=== PATIENT | female | born 1950 | race Caucasian/White ===

== ENCOUNTER 2019-04-26 08:20 | Inpatient (IN) ==
--- NOTE | 2019-03-26 09:43 | PAT Medication Instructions ---
Medication Instructions Date of Service March 26, 2019 Home Medications albuterol sulfate 1 puff INHALATION Q6H NEEDED albuterol sulfate 2.5 mg INHALATION QID NEEDED atorvastatin 40 mg PO PM calcium carbonate [Tums Extra Strength Smoothies] 300 mg PO DAILY NEEDED echinacea 500 mg PO QAM hydroxyzine HCl 25 mg PO QID NEEDED naproxen sodium 220 mg PO BID NEEDED pantoprazole 20 mg PO QAM tramadol 50 mg PO Q6H NEEDED vit C,L-Tk-dspzx-lutein-zeaxan [PreserVision AREDS-2] 1 tab PO QAM zolpidem 5 mg PO HS NEEDED ASK your surgeon for instructions naproxen sodium 220 mg PO BID NEEDED STOP taking 2 weeks before surgery echinacea 500 mg PO QAM vit C,G-Af-gadtt-lutein-zeaxan [PreserVision AREDS-2] 1 tab PO QAM DO NOT take the morning of surgery calcium carbonate [Tums Extra Strength Smoothies] 300 mg PO DAILY NEEDED hydroxyzine HCl 25 mg PO QID NEEDED Take morning of surgery With a small sip of water, OTHERWISE NOTHING TO EAT OR DRINK AFTER MIDNIGHT: albuterol sulfate 1 puff INHALATION Q6H NEEDED (if needed; bring to hospital) albuterol sulfate 2.5 mg INHALATION QID NEEDED (if needed) tramadol 50 mg PO Q6H NEEDED (if needed; stop 4 hours before surgery) pantoprazole 20 mg PO QAM Take evening before surgery albuterol sulfate 1 puff INHALATION Q6H NEEDED (if needed) albuterol sulfate 2.5 mg INHALATION QID NEEDED (if needed) calcium carbonate [Tums Extra Strength Smoothies] 300 mg PO DAILY NEEDED (if needed) hydroxyzine HCl 25 mg PO QID NEEDED (if needed) tramadol 50 mg PO Q6H NEEDED (if needed) zolpidem 5 mg PO HS NEEDED (if needed) atorvastatin 40 mg PO PM Other Notes If you have any questions please call us at [phone] or [phone] or [phone] or [phone]
--- NOTE | 2019-03-26 11:10 | Anesthesiology Consultation ---
Date of Service March 26, 2019 Assessment & Plan (1) Encounter for pre-operative examination: - No previous anesthesia records available. Chart Review Chart Review: Acceptable Risk for Surgery and Patient seen in Pre Admission T esting Consults Requested none Teaching & Discussion Pre-Anesthesia Teaching/Discussion Notes: Instructed NPO after midnight before surgery, except medications with 15 cc of water. Medication instructions provided according to the PAT guidelines. History Surgery Operation Date: 04/26/19 07:00 Proposed Procedures p Right Reversed Total Shoulder Arthroplasty - Ray Leggett MD Height/Weight Height: 5 ft 2.5 in Weight: 89.5 kg Allergies Allergy/AdvReac Type Severity Reaction Status Date / Time codeine Allergy ITCHING Verified 03/19/19 11:20 AND NAUSEA Medications Home Medications Medication Instructions Recorded Confirmed Last Taken albuterol sulfate 1 puff INHALATION Q6H PRN 03/19/19 03/26/19 Unknown albuterol sulfate 2.5 mg INHALATION QID PRN 03/19/19 03/26/19 Unknown atorvastatin 40 mg PO PM 03/19/19 03/26/19 Unknown calcium carbonate [Tums Extra 300 mg PO DAILY PRN 03/19/19 03/26/19 Unknown Strength Smoothies] hydroxyzine HCl 25 mg PO QID PRN 03/19/19 03/26/19 Unknown naproxen sodium 220 mg PO BID PRN 03/19/19 03/26/19 Unknown pantoprazole 20 mg PO QAM 03/19/19 03/26/19 Unknown tramadol 50 mg PO Q6H PRN 03/19/19 03/26/19 Unknown zolpidem 5 mg PO HS PRN 03/19/19 03/26/19 Unknown mupirocin 2 % topical ointment 1 applic TOP TID #22 gm 03/26/19 03/26/19 Unknown sulfamethoxazole 800 1 tab PO BID 14 Days #28 tab 03/26/19 03/26/19 Unknown mg-trimethoprim 160 mg tablet Past Medical History Medical History Asthma Diabetes mellitus, type 2 GERD (gastroesophageal reflux disease) History of petechial rash Hx MRSA infection D/T BOILS IN PERINEUM - PER PT SHE DID PROTOCOL BY DR MARION Hx of bronchitis Hx of rotator cuff tear X3 Hyperlipidemia Macular degeneration of both eyes Exercise / Class Metabolic Activity II 4-5 Yardwork/Stairs/Walk up hill (Able to climb FOS. Denies CP or SOB. ) Past Family History Family History Daughter FHx: breast cancer Uncle Family history of diabetes mellitus Uncle Family history of diabetes mellitus Past Surgical History Surgical History History of open reduction and internal fixation (ORIF) procedure RIGHT WRIST History of prolapse of bladder REPAIR Hx of appendectomy Hx of bilateral breast reduction surgery Hx of bilateral cataract extraction Hx of repair of left rotator cuff X2 Hx of repair of right rotator cuff X1 Hx of tonsillectomy Hx of tubal ligation S/P COLLIN-BSO Past Anesthesia History No Hx of Anesthesia Complications and No Family Hx of Anesthesia Complications History of PONV No Hx of Motion Sickness and History of PONV Social History Smoking Status: Former smoker Smoking cigarettes per day: 1 pack per week x 3-4 years Do You Dip or Chew Tobacco: No Smoking End Date: 20 YR AGO Hx Alcohol Use: Yes Alcohol type: wine alcohol intake frequency: a few times a week Hx Substance Use: No Review of Systems Patient denies chest pain, shortness of breath, dyspnea on exertion, cough, wheezing, palpitations. + Joint Pain (Shoulder, right knee) +Acid Reflux (controlled with current medications and diet) Physical Exam Vital Signs BP: 126/73 P: 85 R: 16 T: 98.2 SPO2: 97% on RA Constitutional + obese ENMT Thyromental Distance: < 3.5 Finger Breadths (3) Mallampati Class: II Neck normal visual inspection; neck extension not limited Respiratory normal respiratory effort Auscultation: lungs clear to auscultation bilaterally Cardiovascular Rate/Rhythm: regular rate and regular rhythm Heart Sounds: no murmur Vessels: no carotid bruit Neurologic moves all extremities Psychiatric Orientation: alert and oriented x 3 Testing Laboratory Results 03/26/19 10:52 03/26/19 10:52 PT 10.0 Seconds (9.0-12.0) 03/26/19 10:52 INR 1.0 (0.9-1.1) 03/26/19 10:52 APTT 25.8 Seconds (21.0-31.0) 03/26/19 10:52 Hemoglobin A1c 8.2 % (4.5-5.6) H 03/26/19 10:52 Urine Color Yellow 03/26/19 Unknown Urine Appearance Clear (Clear) 03/26/19 Unknown Urine pH 5.0 (4.5-7.5) 03/26/19 Unknown Ur Specific Hatch 1.020 (1.000-1.030) 03/26/19 Unknown Urine Protein Negative (Negative) 03/26/19 Unknown Urine Glucose (UA) Trace (Negative) H 03/26/19 Unknown Urine Ketones Negative (Negative) 03/26/19 Unknown Urine Nitrite Negative (Negative) 03/26/19 Unknown Ur Leukocyte Esterase Negative (Negative) 03/26/19 Unknown Blood Type B Positive 03/26/19 10:52 Antibody Screen NEGATIVE 03/26/19 10:52 Surgeon's office notified of elevated HgbA1C. A1C was 6.8 as of 12/16/18. Electrocardiogram Date: 03/26/19 Findings: + NSR @ (75) Low voltage QRS Chest X-Ray Date: 03/26/19 Findings: + NAD
--- NOTE | 2019-03-26 11:55 | XRay Report ---
TWO VIEW CHEST CLINICAL HISTORY: Preoperative examination. FINDINGS: PA and lateral chest radiographs are obtained. No prior studies are available for compariso n at the time of dictation. The cardiomediastinal silhouette is unremarkable. The lungs and pleura l spaces are clear. There is no pneumothorax. The bony thorax appears intact. IMPRESSION: No active disease in the chest. Electronically signed by: Cody Olguin M.D. 03/26/2019 11:53 AM
[2019-03-26 12:05] LABS: Basophils # (auto) 0.03 K/uL (0-0.2); Basophils % (auto) 0.4 %; Eosinophils # (auto) 0.33 K/uL (0-0.5); Eosinophils % (auto) 4.3 %; Hematocrit (blood only) 41.6 % (37-47); Hemoglobin 14.3 g/dL (12.0-16.0); Immature Granulocytes # (auto) 0.02 K/uL (0.00-0.02); Immature Granulocytes % (auto) 0.3 %; Lymphocytes # (auto) 2.23 K/uL (1.2-3.4); Lymphocytes % (auto) 29.3 %; Mean Corpuscular Hemoglobin 27.3 pg (25-34); Mean Corpuscular Hgb Conc 34.4 g/dL (32-36); Mean Corpuscular Volume 79.4 fL (80-100); Mean Platelet Volume 9.5 fL (7.4-10.4); Monocytes % (auto) 6.6 %; Neutrophils % (auto) 59.1 %; Platelet Count 216 K/uL (130-400); RDW Coefficient of Variation 14.2 % (11.5-14.5); RDW Standard Deviation 40.8 fL (36.4-46.3); Red Blood Count 5.24 M/uL (4.2-5.4); White Blood Count 7.61 K/uL (4.8-10.8)
[2019-03-26 12:06] LABS: Appearance Urine Clear (Clear); Bilirubin Urine Negative (Negative); Blood Urine Negative (Negative); Color Urine Yellow; Glucose Urine UA Trace (Negative); Ketones Urine Negative (Negative); Leukocyte Esterase Urine Negative (Negative); Nitrite Urine Negative (Negative); Protein Urine Negative (Negative); Urobilinogen Urine Negative (Negative)
[2019-03-26 12:12] LABS: BUN Creatinine Ratio 14.8 (10-20); Calcium 9.4 mg/dl (8.5-10.1); Est GFR (African American) 72.8; Est GFR (Non-African American) 62.8; Potassium 4.7 mmol/L (3.5-5.1)
[2019-03-26 12:17] LABS: Partial Thromboplastin Time 25.8 Seconds (21.0-31.0)
[2019-03-26 12:40] LABS: Estimated Average Glucose 189 mg/dl; Hemoglobin A1C 8.2 % (4.5-5.6)
--- NOTE | 2019-04-25 17:03 | History and Physical Report ---
DATE OF ADMISSION: 04/26/2019 CHIEF COMPLAINT: Chronic right shoulder pain and weakness. HISTORY OF PRESENT ILLNESS: This is a 68-year-old female patient of Dr. Leggett'otis complaining of chronic right shoulder pain and weakness, longstanding, now progressively getting worse. She has failed conservative treatment including intra-articular injections, anti-inflammatories and a failed rotator cuff repair in the past. The patient has been diagnosed with right rotator cuff arthropathy and wishes to proceed with a right reversed total shoulder arthroplasty. PAST MEDICAL HISTORY: Hypercholesterolemia, asthma, diabetes mellitus, osteoarthritis, acid reflux, obesity and a history of MRSA. SOCIAL HISTORY: Nonsmoker. She is an occasional drinker. PAST SURGICAL HISTORY: Rotator cuff repair x3. FAMILY HISTORY: Noncontributory. REVIEW OF SYSTEMS: Chronic right shoulder pain and weakness. Otherwise, denies any shortness of breath, chest pain, nausea, vomiting or any other joint complaints. MEDICATIONS: Prevacid 30 mg daily, atorvastatin 40 mg daily. ALLERGIES: CODEINE, HYDROCODONE and OXYCODONE, WHICH ALL CAUSE ITCHINESS. PHYSICAL EXAMINATION: GENERAL: Well-developed, well-nourished 68-year-old female in no acute distress. She is alert and oriented x3 and pleasant. HEENT: Normocephalic, atraumatic. Extraocular motions are intact. Pupils are equal and reactive to light. HEART: Regular rate and rhythm, no murmurs. LUNGS: Clear. ABDOMEN: Soft, nontender, bowel sounds present. EXTREMITIES: Right shoulder, she has full range of motion with pain. Abduction strength is 3/5, internal rotation has 5/5, external rotation is 4/5, all range of motion and strength testing is with pain. NEUROLOGIC: Neurovascularly, she is intact in her right upper extremity. DIAGNOSES: Right shoulder rotator cuff arthropathy, hypercholesterolemia, asthma, diabetes, osteoarthritis, acid reflux, obesity and a history of methicillin-resistant staphylococcus aureus. PLAN: The patient was advised of her diagnosis. Indications, risks, benefits, postop course have all been reviewed. The patient wished to proceed with a right shoulder reverse total shoulder arthroplasty. Necessary consent forms, preoperative testing and clearances will be obtained.
[~2019-04-26 08:20] MED LIST: ACETAMINOPHEN 500 MG TAB PO SCH; BUPIVACAINE/EPINEPHRINE 0.25% 1:200,000 30 ML VIAL ONE; CEFAZOLIN 2000MG 2,000 MG/15 ML SYR IV SCH; CeleBREX 200 MG CAP PO SCH; DEXAMETHASONE SOD INJ 4 MG/ML VIAL ONE; FAMOTIDINE 20 MG TAB PO SCH; GABAPENTIN 300 MG CAP PO SCH; GLYCOPYRROLATE 0.2 MG/ML VIAL ONE; KETAMINE HCL INJ 50 MG/ML 10 ML VIAL ONE; LIDOCAINE HCL 2% 2 ML VIAL/AMP(20MG/ML) INFIL ONE; LR 15ML/HR IV SCH; METOCLOPRAMIDE HCL 10 MG TABLET PO SCH; MIDAZOLAM HCL 1 MG/ML 2ML VIAL ONE; NEOSTIGMINE METHYLSULFATE 5 MG/5 ML SYR ONE; ONDANSETRON INJ 2 MG/ML 2 ML VIAL ONE; PROPOFOL IV EMULSION 10 MG/ML 20 ML VIAL IV ONE; ROCURONIUM BROMIDE 10 MG/ML 5 ML VIAL ONE; ROPIVACAINE 0.5% 5 MG/ML 30 ML VIAL ONE; SCOPOLAMINE 1.5 MG TDSY TD SCH; VANCOMYCIN HCL 1,500 MG in SODIUM CHLORIDE 0.9% 500 ML IV SCH; dexAMETHasone 4 MG TAB PO SCH; fentaNYL citrate 100 MCG/2 ML VIAL ONE
--- NOTE | 2019-04-26 09:26 | History & Physical Bridge Note ---
Date of Service April 26, 2019 History & Physical Bridge Note I have examined the patient, reviewed the History & Physical and in the interval since the performance of the History & Physical I have noted the following changes of clinical significance: no changes noted
[2019-04-26] MEDS ORDERED: ONDANSETRON INJ 2 MG/ML 2 ML VIAL IV PRN ×2 (10:07→14:56)
[2019-04-26] MEDS ORDERED: ATROPINE SULFATE 0.1 MG/ML 10ML SYR IV PRN (10:07)
[2019-04-26] MEDS ORDERED: ePHEDrine sulfate 50 MG/ML AMP IV PRN (10:07)
[2019-04-26] MEDS ORDERED: fentaNYL citrate 100 MCG/2 ML VIAL IV PRN (10:07)
[2019-04-26] MEDS ORDERED: BACITRACIN INJ 50,000 UNIT VIAL ONE (10:16)
[2019-04-26] MEDS ORDERED: PHENYLEPHRINE 100MCG/ML 5ML SYR ONE (11:27)
[2019-04-26] MEDS ORDERED: ROCURONIUM BROMIDE 10 MG/ML 5 ML VIAL ONE (11:49)
[2019-04-26] MEDS ORDERED: ePHEDrine sulfate 50 MG/ML SYR ONE (12:57)
--- NOTE | 2019-04-26 13:23 | Post Operative Brief Note ---
Immediate Post Op Note v1 Date of Surgery April 26, 2019 Pre & Post Diagnosis Operation Date: 04/26/19 11:40 Pre-Op Diagnosis: Right shoulder rotator cuff arthropathy, chronic non repairable rotator cuff tear, biceps tendinopathy and retained hardware status post failed rotator cuff repair, right shoulder Post-Op Diagnosis: Right shoulder rotator cuff arthropathy, chronic non repairable rotator cuff tear, biceps tendinopathy and retained hardware status post failed rotator cuff repair, right shoulder Procedure Operation Date: 04/26/19 11:40 Actual Procedures p Right Reversed Total Shoulder Arthroplasty, Tornier, biceps tenodesis, hardware removal(Right) - Ray Leggett MD Surgeon Ray Leggett MD Welding Estimator Tariq DAMICO Estimated Blood Loss 100 Findings Consistent with Post-Op Diagnosis Specimens Humeral head Drains Hemovac Drain (10 mongolian single) Anesthesia Type General Regional Complications none Disposition Accompanied Patient To Recovery: No Disposition: Recovery Room Overlapping Procedure I was present for: the critical portions of procedure.
--- NOTE | 2019-04-26 14:02 | Anesthesiology Progress Note ---
Date of Service April 26, 2019 Anesthesia Post Procedure Vital Signs Vital Signs: Temp Pulse Pulse Resp BP Pulse Ox 04/26/19 13:55 81 17 115/68 95 04/26/19 13:45 87 21 118/61 100 04/26/19 13:35 82 19 117/65 98 04/26/19 13:28 36.0 C L 85 18 104/59 L 99 04/26/19 10:06 36.8 C 78 20 153/72 H 98 Pain Intensity Other: Pain Intensity: 1 Right Shoulder: Pain Intensity: 0 Transfer of Care Handoff Completed per policy Notes Mental Status: alert / awake / arousable and participated in evaluation Patient Amnestic to Procedure: Yes Nausea / Vomiting: adequately controlled Pain: adequately controlled Airway Patency, RR, SpO2: stable & adequate BP & HR: stable & adequate Hydration State: stable & adequate Anesthetic Complications: no major complications apparent and Pt Satisfied with anesthetic care
--- NOTE | 2019-04-26 14:21 | XRay Report ---
XR shoulder RT min 2V routine CLINICAL HISTORY: Post shoulder surgery shoulder replacement COMPARISON: None. DISCUSSION: Anatomic alignment posttotal right shoulder arthroplasty. Good contact between prosthetic and underlying Bone. Expected postoperative soft tissue changes IMPRESSION: Anatomic alignment post total right shoulder arthroplasty. The above report was generated using voice recognition software. It may contain grammatical, syntax or spelling errors. Electronically signed by: Tariq Graff M.D. 04/26/2019 2:20 PM
[2019-04-26] MEDS ORDERED: NALOXONE HCL 0.4 MG/1 ML VIAL/CARP IV PRN (14:56)
[2019-04-26] MEDS ORDERED: SODIUM CHLORIDE 0.9% 1000ML 1,000 ML IV SCH (14:56)
[2019-04-26] MEDS ORDERED: ALBUTEROL 0.083% NEBU SOLN 3 ML VIAL INH PRN (14:56)
[2019-04-26] MEDS ORDERED: ALBUTEROL HFA 8 GM INHALER INH PRN (14:56)
[2019-04-26] MEDS ORDERED: BISACODYL 10 MG SUPP PR PRN (14:56)
[2019-04-26] MEDS ORDERED: ZOLPIDEM TARTRATE 5 MG TAB PO PRN (14:56)
[2019-04-26] MEDS ORDERED: CALCIUM CARBONATE 500 MG CHEWABLE TAB PO PRN (14:56)
[2019-04-26] MEDS ORDERED: VANCOMYCIN CONSULT ACTIVE PRN (14:56)
[2019-04-26] MEDS ORDERED: TRAMADOL HCL 50 MG TABLET PO PRN (14:56)
[2019-04-26] MEDS ORDERED: MAGNESIUM HYDROXIDE SUSP 30 ML UDC PO PRN (14:56)
[2019-04-26] MEDS ORDERED: PHARMACY GLYCEMIC MGMT CONSULT PRN (15:30)
--- NOTE | 2019-04-26 15:30 | Pharmacy Report ---
Glycemic Control Consultation - Date of Service April 26, 2019 - Scope Scope: Glycemic Pharmacist consulted by Dr Michaels on 04/26/19 for glycemic control and to write orders per [facility] inpatient glycemic control protocol - Objective Weight: 89.5 kg Accuchecks BSG (last 24hrs): 04/26/19 04/26/19 09:51 13:31 POC Glucose 106 H 169 H HbA1c: Hemoglobin A1c 8.2 % (4.5-5.6) H 03/26/19 10:52 - Recent Pertinent Medications Outpatient Anti-diabetic Regimen: * Glyburide 5mg PO QAM * A1c = 8.2 % 03/26/19 - Assessment & Plan Assessment & Plan: ASSESSMENT: * Pt is POD: 0 for a shoulder arthroplasty. PMHx consistent with HLD, OA, obesity, DM-II. Her outpt glycemic management is poor as evidenced by her A1C of 8.2%. Her goal A1C is likely closer to 7%. She is just on glyburide as an outpt. * She received DXM 4mg IV x2 perioperatively and DXM 8mg PO x1 preoperatively. Post surgical BSG is 203. She did not take her glyburide today. Diet is ordered. PLAN FOR INPATIENT GLYCEMIC CONTROL: * Holding outpatient oral diabetes medications * Basal insulin * Lantus 40 units X1 stat * Bolus insulin * NovoLog per scale ACHS or Q6hrs while NPO * Goal Range: Low 110 mg/dL - High 140 mg/dL * Correction Factor: 20 mg/dL/unit * Nutritional / Prandial insulin per carb ratio of 1 unit per 6 grams CHO consumed * will add 00,04 checks in post operative setting * Please note that the plan above was derived based on current level of insulin resistance and hospital stress. These recommendations are appropriate for inpatient admission only. Plan of care upon discharge will need to be reassessed to avoid potential outpatient hypo/hyperglycemia. Thank you.
[2019-04-26] MEDS ORDERED: INSULIN GLARGINE SOLOSTAR 100 UNITS/ML 3 ML PEN SC STA (15:32)
[2019-04-26] MEDS ORDERED: CHECK SCOPOLAMINE PATCH PLACEMENT SCH (16:00)
[2019-04-26] MEDS: ACETAMINOPHEN 500 MG TAB PO SCH ×2 (16:19→22:04)
[2019-04-26] MEDS: INSULIN ASPART 100 UNITS/ML 3 ML PEN SC SCH ×2 (17:33→21:16)
--- NOTE | 2019-04-26 20:36 | Operative Report ---
Post Operative Report Pre & Post Diagnosis Operation Date: 04/26/19 11:40 Pre-Op Diagnosis: Right shoulder rotator cuff arthropathy, chronic non repairable rotator cuff tear, biceps tendinopathy and retained hardware status post failed rotator cuff repair, right shoulder Post-Op Diagnosis: Right shoulder rotator cuff arthropathy, chronic non repairable rotator cuff tear, biceps tendinopathy and retained hardware status post failed rotator cuff repair, right shoulder Procedure Operation Date: 04/26/19 11:40 Actual Procedures p Right Reversed Total Shoulder Arthroplasty, Tornier, biceps tenodesis, hardware removal(Right) - Ray Leggett MD Surgeon Ray Leggett MD Chick Sexer Tariq DAMICO Estimated Blood Loss 100 Findings Consistent with Post-Op Diagnosis Specimens Humeral head Drains 2 Hemovac Anesthesia Type General Regional Complications none Disposition Accompanied Patient To Recovery: No Indications 68-year-old female with chronic right shoulder pain status post a failed rotator cuff repair. Patient had MRI demonstrating a large retracted rotator cuff tear. She had previous decompression procedure. Just proximal migration humerus. There is some moderate osteoarthritis. Description of Procedure The patient was taken to the operating room and anesthetized under regional block and general anesthetic. The patient was positioned on the operating table in a 30 beachchair position with a towel roll under the medial border of the right scapula. The arm was draped free to be able to manipulate the shoulder as needed. The right upper extremity was prepped and draped in usual sterile fashion. Exam demonstrated forward elevation 160 abduction 90 external rotation to 60 subacromial crepitation. An anterior deltopectoral approach was performed. A longitudinal incision was made in the deltopectoral interval. The skin was incised sharply. Subcutaneous flaps were elevated off the fascia. The cephalic vein was dissected out and retracted lateral with the deltoid. The clavipectoral fascia was divided at the lateral margin of the conjoined tendon and extended up to the CA ligament. The following findings were noted there is scar tissue in the clavipectoral fascia. There was significant biceps tenosynovitis. The subscapularis tendon was very thin and had tendinopathy and thinning but was intact. The rotator cuffs of the posterior supraspinatus and infraspinatus were both torn. There was some suture material from the old repair where there was a soft tissue failure of the rotator cuff repair. Anchors were not displaced at all. The upper centimeter of the pectoralis was released for inferior exposure. The biceps tendon findings demonstrated intact biceps tendon of approximately joint was widened and there was tendinopathy. There was chronic tenosynovitis from the bicipital groove down to the pectoralis.. the biceps tendon was tenodesed to the pectoralis tendon with #2 FiberWire. The proximal biceps was resected. The subscapularis tendon was taken down off the lesser tuberosity using a subperiosteal dissection. A #1 Vicryl traction suture was placed into the free end of the subscapularis tendon and capsule. The subscapular muscle fibers were split longitudinally at the level of the circumflex vessels. The circumflex vessels were identified and tied off with silk ties and divided laterally. A Kitner elevator was used to free up the inferior fibers of the subscapularis off of the capsule. The axillary nerve was identified with a tug test and protected with a blunt Fauzia retractor between the nerve and the capsule. The subscapularis tendon was then taken down off of the lesser tuberosity subperiosteally and subperiosteal dissection was performed along the neck of the humerus as the arm is gradually actually rotated exposing the humeral head. Retractors were readjusted and the small inferior osteophytes were all resected using a rongeur. Humeral head had mild to moderate osteoarthritic changes. A Addison elevator was used to assist in releasing the capsule of the neck of the humerus. The capsule was divided with Ashraf scissors down to the glenoid released off the anterior glenoid and the rotator interval was released to meet the capsular release and a 360 release of the subscapularis was accomplished. A Fukuda retractor was placed into the joint retracting the humeral head posterior. Glenoid findings demonstrated grade 3 osteoarthritis. The labrum and biceps tendon was resected. an anterior-inferior and posterior inferior capsular release were performed with electrocautery and a Addison elevator on bone with the axillary nerve protected inferiorly by the retractor. Attention was then taken to the humeral preparation. The cutting guide was placed into the humeral head. It was positioned at 20 of retroversion. Oscillating saw was used to resect the humeral head giving the cut above the level of the posterior rotator cuff insertion site. Peek suture anchor that was in the proximal greater tuberosity area was resected along with the suture material so we could prepare the humerus. The humerus was then prepared for the stem. I used the ascend flex stem from [employer]. The sizing broaches were used followed by trial broaches up to a size 4B long which had the appropriate fit and fill. The appropriate sized cut protector was placed. The humerus was then retracted posterior to the glenoid. The glenoid was sized for a 25. The guide for the baseplate was positioned in a 10 inferior tilt and the central drill hole was made. The reamer for the 25 baseplate was used. The central drill was widened for the peg. The 25 hydroxy appetite aequalis Tornier baseplate was impacted into position. The base plate was transfixed with superior and inferior locking screws and anterior and posterior compression screws with stable fixation. The fan reamer was used for the 36 millimeter glenoid sphere. After irrigation the 36 standard glenoid sphere was impacted onto the baseplate and the screw was tightened. Attention was taken back to the humerus. The cut protector was removed and the high offset +0 humeral tray trial was assembled to the trial stem rotated appropriately to get bony coverage and then screwed in position. A trial reduction was performed. A +6 trial insert demonstrated good stability and no shuck. The trials were removed. 3 drill holes are made into the harder bone in the bicipital groove area and 3 #5 FiberWire sutures were placed transosseously. The canal was irrigated with antibiotic solution with memo itracin. The final component was assembled. The final component was 4B long humeral stem assembled to plus or high offset 3.5 humeral tray and the 36 mm/+6 humeral insert polyethylene. This was then impacted into the humerus with a tight press-fit. It was reduced to the glenoid sphere. Stability was verified. Subscapularis was repaired with the #5 FiberWire sutures using Gomez-Heath suture technique. Lateral row soft tissue repair was performed with #2 FiberWire [id number] sutures. The pectoralis was repaired with #2 FiberWire [id number] sutures reinforcing the biceps tendon tenodesis. The arm was taken through a range of motion which demonstrated 130 degrees forward elevation 90 degrees abduction and 50 degrees of external rotation without tension on repair. The implant was stable through the range of motion tested. The wound was copiously irrigated. 2 Hemovac drains were placed. The deltopectoral interval was closed with [id number] #1 Vicryl sutures. The subcutaneous tissues were closed with 2-0 Vicryl sutures. The skin was closed with maria ines. Sterile dressings were applied and a shoulder immobilizer. Tariq DAMICO my physician pastoral assistant assisted in the procedure to the entire procedure including patient positioning arm positioning prepping and draping soft tissue retraction instrument management suture management and performed the subcutaneous and skin closure and will participate in the postoperative care of the patient. I attest to the content of the Intraoperative Record and any orders documented therein. Any exceptions are noted below.
[2019-04-26] MEDS: MUPIROCIN 2% OINT 22 GM TUBE TOP SCH (21:12)
[2019-04-26] MEDS: ASPIRIN 81 MG ECTAB PO SCH (21:14)
[2019-04-26] MEDS: ATORVASTATIN 40 MG TAB PO SCH (21:15)
[2019-04-26] MEDS: DOCUSATE SODIUM 100 MG CAP PO SCH (21:15)
[2019-04-26] MEDS: SENNA 8.6 MG TAB PO SCH (21:17)
[2019-04-26] MEDS ORDERED: COUGH DROP (SUGAR FREE) LOZ 24 LOZ/1 BOX BUCCAL PRN (21:20)
[2019-04-26] MEDS ORDERED: COUGH DROP (SUGAR FREE) LOZ 24 LOZ/1 BOX BUCCAL ONE (21:21)
[2019-04-26] MEDS ORDERED: VANCOMYCIN HCL 1,250 MG in SODIUM CHLORIDE 0.9% 250 ML IV SCH (22:00)
[2019-04-27] MEDS: INSULIN ASPART 100 UNITS/ML 3 ML PEN SC SCH ×6 (00:10→21:32)
[2019-04-27] MEDS: ACETAMINOPHEN 500 MG TAB PO SCH ×3 (03:44→20:53)
[2019-04-27 05:50] LABS: Basophils # (auto) 0.01 K/uL (0-0.2); Basophils % (auto) 0.1 %; Hematocrit (blood only) 33.1 % (37-47); Hemoglobin 10.7 g/dL (12.0-16.0); Immature Granulocytes # (auto) 0.02 K/uL (0.00-0.02); Immature Granulocytes % (auto) 0.2 %; Lymphocytes # (auto) 1.14 K/uL (1.2-3.4); Mean Corpuscular Hemoglobin 26.4 pg (25-34); Mean Corpuscular Hgb Conc 32.3 g/dL (32-36); Mean Corpuscular Volume 81.5 fL (80-100); Mean Platelet Volume 9.2 fL (7.4-10.4); Monocytes % (auto) 6.3 %; Neutrophils # (auto) 10.76 K/uL (1.4-6.5); Neutrophils % (auto) 84.4 %; Platelet Count 170 K/uL (130-400); RDW Coefficient of Variation 14.6 % (11.5-14.5); RDW Standard Deviation 43.2 fL (36.4-46.3); Red Blood Count 4.06 M/uL (4.2-5.4); White Blood Count 12.73 K/uL (4.8-10.8)
[2019-04-27 06:20] LABS: BUN Creatinine Ratio 14.6 (10-20); Calcium 8.8 mg/dl (8.5-10.1); Creatinine Clr Calc Pharmacy 56.2 ml/min; Est GFR (African American) 65.9; Est GFR (Non-African American) 56.9; Potassium 5.2 mmol/L (3.5-5.1)
--- NOTE | 2019-04-27 07:29 | Anesthesiology Progress Note ---
Date of Service April 27, 2019 Anesthesia Post Procedure Vital Signs Vital Signs: Temp Pulse Pulse Resp BP Pulse Ox 04/27/19 07:08 36.9 C 91 H 18 100/58 L 96 04/27/19 04:00 36.7 C 76 16 97/60 L 97 04/26/19 23:36 36.7 C 90 16 97/57 L 94 04/26/19 20:24 36.6 C 95 H 18 114/69 94 04/26/19 17:57 36.9 C 101 H 17 96/59 L 92 04/26/19 17:09 36.4 C L 97 H 17 107/72 92 04/26/19 15:58 36.5 C 90 18 122/63 94 04/26/19 15:29 36.5 C 86 18 115/72 95 04/26/19 15:00 36.8 C 87 16 106/69 94 04/26/19 14:35 84 16 104/66 95 04/26/19 14:25 85 18 125/60 95 04/26/19 14:15 86 16 105/63 95 04/26/19 14:05 80 15 115/63 95 04/26/19 13:55 81 17 115/68 95 04/26/19 13:45 87 21 118/61 100 04/26/19 13:35 82 19 117/65 98 04/26/19 13:28 36.0 C L 85 18 104/59 L 99 04/26/19 10:06 36.8 C 78 20 153/72 H 98 Pain Intensity Other: Pain Intensity: 1 Right Shoulder: Pain Intensity: 0 Right Chest: Pain Intensity: 5 Notes Mental Status: alert / awake / arousable and participated in evaluation Patient Amnestic to Procedure: Yes Nausea / Vomiting: adequately controlled Pain: adequately controlled Airway Patency, RR, SpO2: stable & adequate BP & HR: stable & adequate Hydration State: stable & adequate Neuraxial Anesthesia: sensory block resolved Anesthetic Complications: Pt Satisfied with anesthetic care
--- NOTE | 2019-04-27 07:54 | Orthopedic Progress Note ---
Date of Service April 27, 2019 Assessment & Plan (1) Rotator cuff arthropathy of right shoulder: POD 1 s/p Right Reverse TSA Limited PT/OT today. DVT proph - ASA,SCD Pain management - Nerve block slowly wearing off. IV Hydromorphone, Oxycodone DC planning - Home/self care with help of family. Subjective POD 1 s/p Right Reverse TSA Pt up ambulating in hallway with daughter. No complaints this AM. Pain controlled. Nerve block still working well for pain control in the shoulder. States she's moving her fingers better this AM. Hoping to go home today. Physical Exam Physical Exam: Dressings are C/D/I. Moving all 5 fingers well. Good wrist ROM. HV functioning; 50ml latest shift. Results & Data Vital Signs (Past 12 Hours) Vital Signs Temp Pulse Resp BP Pulse Ox 04/27/19 07:08 36.9 C 91 H 18 100/58 L 96 04/27/19 04:00 36.7 C 76 16 97/60 L 97 04/26/19 23:36 36.7 C 90 16 97/57 L 94 04/26/19 20:24 36.6 C 95 H 18 114/69 94 Laboratory Results Laboratory Results WBC 12.73 K/uL (4.8-10.8) H 04/27/19 05:30 RBC 4.06 M/uL (4.2-5.4) L 04/27/19 05:30 Hgb 10.7 g/dL (12.0-16.0) L 04/27/19 05:30 Hct 33.1 % (37-47) L 04/27/19 05:30 MCV 81.5 fL (80-100) 04/27/19 05:30 MCH 26.4 pg (25-34) 04/27/19 05:30 MCHC 32.3 g/dL (32-36) 04/27/19 05:30 RDW Std Deviation 43.2 fL (36.4-46.3) 04/27/19 05:30 RDW Coeff of Courtney 14.6 % (11.5-14.5) H 04/27/19 05:30 Plt Count 170 K/uL (130-400) 04/27/19 05:30 MPV 9.2 fL (7.4-10.4) 04/27/19 05:30 Immature Gran % (Auto) 0.2 % 04/27/19 05:30 Neut % (Auto) 84.4 % 04/27/19 05:30 Lymph % (Auto) 9.0 % 04/27/19 05:30 Lamb % (Auto) 6.3 % 04/27/19 05:30 Eos % (Auto) 0.0 % 04/27/19 05:30 Baso % (Auto) 0.1 % 04/27/19 05:30 Immature Gran # (Auto) 0.02 K/uL (0.00-0.02) 04/27/19 05:30 Neut # (Auto) 10.76 K/uL (1.4-6.5) H 04/27/19 05:30 Lymph # (Auto) 1.14 K/uL (1.2-3.4) L 04/27/19 05:30 Lamb # (Auto) 0.80 K/uL (0.11-0.59) H 04/27/19 05:30 Eos # (Auto) 0.00 K/uL (0-0.5) 04/27/19 05:30 Baso # (Auto) 0.01 K/uL (0-0.2) 04/27/19 05:30 PT 10.0 Seconds (9.0-12.0) 03/26/19 10:52 INR 1.0 (0.9-1.1) 03/26/19 10:52 APTT 25.8 Seconds (21.0-31.0) 03/26/19 10:52 PTT Ratio 1.0 03/26/19 10:52 Sodium 138 mmol/L (136-145) 04/27/19 05:30 Potassium 5.2 mmol/L (3.5-5.1) H 04/27/19 05:30 Chloride 108 mmol/L (98-107) H 04/27/19 05:30 Carbon Dioxide 25 mmol/L (21-32) 04/27/19 05:30 Anion Gap 5.0 (3-11) 04/27/19 05:30 BUN 15 mg/dl (7-18) 04/27/19 05:30 Creatinine 1.02 mg/dl (0.6-1.2) 04/27/19 05:30 Est Cr Clr Drug Dosing 56.2 ml/min 04/27/19 05:30 Est GFR ( Amer) 65.9 04/27/19 05:30 Est GFR (Non-Af Amer) 56.9 04/27/19 05:30 BUN/Creatinine Ratio 14.6 (10-20) 04/27/19 05:30 Glucose 134 mg/dl (70-99) H 04/27/19 05:30 POC Glucose 130 (70-99) H 04/27/19 03:39 Estimat Average Glucose 189 mg/dl 03/26/19 10:52 Hemoglobin A1c 8.2 % (4.5-5.6) H 03/26/19 10:52 Calcium 8.8 mg/dl (8.5-10.1) 04/27/19 05:30 Albumin 3.8 gm/dl (3.4-5.0) 03/26/19 10:52 Urine Color Yellow 03/26/19 Unknown Urine Appearance Clear (Clear) 03/26/19 Unknown Urine pH 5.0 (4.5-7.5) 03/26/19 Unknown Ur Specific [place] 1.020 (1.000-1.030) 03/26/19 Unknown Urine Protein Negative (Negative) 03/26/19 Unknown Urine Glucose (UA) Trace (Negative) H 03/26/19 Unknown Urine Ketones Negative (Negative) 03/26/19 Unknown Urine Blood Negative (Negative) 03/26/19 Unknown Urine Nitrite Negative (Negative) 03/26/19 Unknown Urine Bilirubin Negative (Negative) 03/26/19 Unknown Urine Urobilinogen Negative (Negative) 03/26/19 Unknown Ur Leukocyte Esterase Negative (Negative) 03/26/19 Unknown Blood Type B Positive 03/26/19 10:52 Antibody Screen NEGATIVE 03/26/19 10:52
[2019-04-27] MEDS: DOCUSATE SODIUM 100 MG CAP PO SCH ×2 (08:58→19:37)
[2019-04-27] MEDS: MUPIROCIN 2% OINT 22 GM TUBE TOP SCH ×2 (08:58→19:38)
[2019-04-27] MEDS: PANTOprazole 40 MG TAB PO SCH (08:59)
[2019-04-27] MEDS: ASPIRIN 81 MG ECTAB PO SCH ×2 (08:59→19:37)
[2019-04-27] MEDS: MULTIVITAMIN TAB PO SCH (08:59)
[2019-04-27] MEDS: OXYCODONE HCL IR 5 MG TAB (IMMEDIATE RELEASE) PO PRN ×2 (09:08→15:51)
[2019-04-27] MEDS ORDERED: ZOLPIDEM TARTRATE 5 MG TAB PO PRN (10:15)
--- NOTE | 2019-04-27 11:17 | Hospitalist Consultation ---
Date of Consultation April 27, 2019 Assessment & Plan (1) Rotator cuff arthropathy of right shoulder: - S/P Repair on 04/26 - Pain, DVT, surgical management per primary - planning on possible D/C today vs tomorrow depending on drain output Patient is stable is chronic conditions and glycemic management is present for glucose control. She is possibly for D/C later today vs tomorrow. Hospitalists will signoff at this time however do not hesitate to contact us with questions or change in medical status. (2) Type 2 diabetes mellitus: - A1c at 8.2 - Reports she is trying to make dietary changes as well - last about 2 pounds this month - Glycemic management following - anticipate return to home medications and outpatient F/U on discharge - encourage continued dietary/weight management changes to help with A1c reduction (3) Asthma: - No recent exacerbation; continue inhalers PRN Present on Admission?: Yes (4) High cholesterol: - Continue Atorvastatin 40 mg daily Present on Admission?: Yes (5) MRSA carrier: - H/O MRSA infection and has intermittent blistering; was evaluated by [facility] prior to surgery for prophylactic treatment; no active sores/blisters - Patient has H/O working in healthcare Present on Admission?: Yes (6) Insomnia: - Long-standing issues and is prescribed Ambien 5 mg daily - reports she does occasionally take 10 mg as this dose does help but the 5 mg does not; she denies oversedation in AM and states she is still able to get up at night to go to the bathroom, etc without over-sedation - Will increase to Ambien 10 mg HS PRN if she does remain hospitalized Present on Admission?: Yes History of Present Illness Reason for Consultation: Medical Management Attending Physician: Ray Leggett MD History of Present Illness Ms. Swift is a 68 y/o female with PMHx of T2DM, Asthma, HLD, GERD, Insomnia, and H/O MRSA infection who is S/P R Shoulder on 04/26. She does report she had some chest pressure after surgery yesterday but states this has become reproducible and feels like it is muscular in nature. She reports her pain was controlled yesterday with the nerve block but is having more pain since this has worn off and currently attempting to get the pain under control with the ordered medications. She is tolerating a diet and ambulating without issue. She reports she has longstanding insomnia. She normally takes Ambien 5 mg at night but does report taking 10 mg intermittently. Allergies Allergy/AdvReac Type Severity Reaction Status Date / Time codeine AdvReac Intermediate ITCHING Verified 04/26/19 10:00 AND NAUSEA Home Medications Home Medications Medication Instructions Recorded Confirmed Type albuterol sulfate 1 puff INHALATION Q6H PRN 03/19/19 04/26/19 History albuterol sulfate 2.5 mg INHALATION QID PRN 03/19/19 03/26/19 History atorvastatin 40 mg PO PM 03/19/19 04/26/19 History calcium carbonate [Tums Extra 300 mg PO DAILY PRN 03/19/19 04/26/19 History Strength Smoothies] hydroxyzine HCl 25 mg PO QID PRN 03/19/19 04/26/19 History naproxen sodium 220 mg PO BID PRN 03/19/19 04/26/19 History pantoprazole 20 mg PO QAM 03/19/19 04/26/19 History tramadol 50 mg PO Q6H PRN 03/19/19 04/26/19 History zolpidem 5 mg PO HS PRN 03/19/19 04/26/19 History glyburide 5 mg PO QAM 04/23/19 04/26/19 History mupirocin 1 applic TOP BID 04/26/19 04/26/19 History sulfamethoxazole-trimethoprim 1 tab PO BID 04/26/19 04/26/19 History [Bactrim] acetaminophen [Tylenol Extra 1,000 mg PO Q8 7 Days #42 tab 04/27/19 Rx Strength] aspirin [Ecotrin Low Strength] 81 mg PO BID 30 Days #60 tab 04/27/19 Rx oxycodone 5 mg PO Q6H PRN #30 tab 04/27/19 Rx sulfamethoxazole-trimethoprim 1 tab PO BID #28 tab 04/27/19 Rx [Bactrim] Patient History Medical History Asthma Diabetes mellitus, type 2 GERD (gastroesophageal reflux disease) History of petechial rash Hx MRSA infection D/T BOILS IN PERINEUM - PER PT SHE DID PROTOCOL BY DR MARION Hx of bronchitis Hx of rotator cuff tear X3 Hyperlipidemia Macular degeneration of both eyes Surgical History History of open reduction and internal fixation (ORIF) procedure RIGHT WRIST History of prolapse of bladder REPAIR Hx of appendectomy Hx of bilateral breast reduction surgery Hx of bilateral cataract extraction Hx of repair of right rotator cuff X1 Hx of tonsillectomy Hx of tubal ligation Hx of repair of left rotator cuff X2 S/P COLLIN-BSO Family History Daughter FHx: breast cancer Uncle Family history of diabetes mellitus Uncle Family history of diabetes mellitus Social History Preferred Language: Slovenian Communication Ability: Effective Beliefs That Will Affect Care: None Current Living Situation: Spouse Feels Safe at Home: Yes Smoking Status: Former smoker Cigarettes Per Day: 1 pack per week x 3-4 years ; Do You Dip or Chew Tobacco: No ; Smoking End Date: 20 YR AGO ; Second Hand Exposure: No ; Hx Alcohol Use: Yes Alcohol type: wine Hx Substance Use: No Review of Systems Constitutional: no fever and no chills Respiratory: no cough and no dyspnea Cardiovascular: no chest pain, no palpitations, no lightheadedness and no edema Gastrointestinal: no abdominal pain, no nausea, no vomiting, no constipation and no diarrhea/loose stools Genitourinary: no dysuria Musculoskeletal: + joint pain (R shoulder) Integumentary: no rash Physical Exam Constitutional: WD/WN, vitals as above Eyes: + anicteric sclerae ENMT: Ears: no hearing impairment Neck: trachea midline Respiratory: normal respiratory effort, lungs clear to auscultation Cardiovascular: RRR, no murmur, no edema Gastrointestinal (Abdomen): Inspection/Auscultation: normal bowel sounds Percussion/Palpation: abdomen soft; abdomen nontender Musculoskeletal: no cyanosis or clubbing, extremities motor strength 5/5 (did not test RUE) Head/Neck/Chest: normocephalic and head atraumatic R shoulder with sling and drain present; movement to fingers and sensation intact; fingers equal temperature and immediate cap refill Skin: no rashes, warm and dry Neurologic: moves all extremities Psychiatric: A+Ox3, euthymic affect Results & Data Vital Signs (Past 12 Hours) Vital Signs Temp Pulse Resp BP Pulse Ox 04/27/19 11:12 36.7 C 72 18 118/72 98 04/27/19 07:08 36.9 C 91 H 18 100/58 L 96 04/27/19 04:00 36.7 C 76 16 97/60 L 97 04/26/19 23:36 36.7 C 90 16 97/57 L 94 PG Care Time/CCT Total # of Minutes Spent Total Time Spent with Patient: Total time spent is greater than 50% in coordination of care (as documented) at patient's floor/unit and/or counseling patient:
[2019-04-27] MEDS: HYDROmorphone INJ 0.5 MG/0.5 ML SYR IV PRN ×3 (11:52→20:53)
[2019-04-27] MEDS: CARBOHYDRATES FOR HYPOGLYCEMIA PO PRN ×2 (12:10→12:26)
--- NOTE | 2019-04-27 12:16 | Pharmacy Report ---
Pharmacy Glycemic Short Note 2 - Date of Service April 27, 2019 - Glycemic Short BSG Results (Last 24 hours): 04/26/19 04/26/19 04/26/19 13:31 15:21 17:20 Glucose POC Glucose 169 H 203 H 256 H 04/26/19 04/26/19 04/27/19 20:32 23:36 03:39 Glucose POC Glucose 232 H 188 H 130 H 04/27/19 04/27/19 05:30 07:56 Glucose 134 H POC Glucose 117 H OUTPATIENT ANTIDIABETIC REGIMEN: * ASSESSMENT: * PLAN FOR INPATIENT GLYCEMIC CONTROL: * Hold outpatient oral diabetes medications * Basal insulin * Lantus [] units SQ BID * Bolus insulin * NovoLog per scale ACHS or Q6hrs while NPO * Goal Range: Low [] mg/dL - High [] mg/dL * Correction Factor: [] mg/dL/unit * Nutritional / Prandial insulin per carb ratio of 1 unit per [] grams CHO consumed PLAN FOR DISCHARGE: *
[2019-04-27] MEDS ORDERED: GLUCOSE 40% GEL 15 GM TUBE PO PRN (12:30)
[2019-04-27] MEDS ORDERED: GLUCAGON FOR INJ 1 MG VIAL IM PRN (12:30)
[2019-04-27] MEDS ORDERED: DEXTROSE 50% 50 ML SYRINGE IV PRN (12:30)
[2019-04-27] MEDS ORDERED: GLUCOSE 10 TABS/TUBE PO PRN (12:30)
[2019-04-27] MEDS ORDERED: INSULIN GLARGINE SOLOSTAR 100 UNITS/ML 3 ML PEN SC ONE (12:30)
--- NOTE | 2019-04-27 15:03 | Pharmacy Report ---
Pharmacy Glycemic Short Note 2 - Date of Service April 27, 2019 - Glycemic Short BSG Results (Last 24 hours): 04/26/19 04/26/19 04/26/19 15:21 17:20 20:32 Glucose POC Glucose 203 H 256 H 232 H 04/26/19 04/27/19 04/27/19 23:36 03:39 05:30 Glucose 134 H POC Glucose 188 H 130 H 04/27/19 04/27/19 04/27/19 07:56 12:07 12:24 Glucose POC Glucose 117 H 66 L* 67 L* 04/27/19 12:41 Glucose POC Glucose 87 OUTPATIENT ANTIDIABETIC REGIMEN: * Glyburide 5 mg PO qam ASSESSMENT: * Patient POD#1 s/p shoulder surgery * Patient received 67 units of insulin yesterday (40 of which were Lantus to cover for dexamethasone 8 mg IV + 8 mg PO) * Episode of hypoglycemia this afternoon before lunch (BSG of 66) PLAN FOR INPATIENT GLYCEMIC CONTROL: * Hold outpatient oral diabetes medications * Bolus insulin * NovoLog per scale ACHS or Q6hrs while NPO * Goal Range: Low 110 mg/dL - High 140 mg/dL * Correction Factor: 25 mg/dL/unit * Nutritional / Prandial insulin per carb ratio of 1 unit per 9 grams CHO consumed * Loosened CF and CR to weight-based stress of 2 based on low BSG at lunch PLAN FOR DISCHARGE: * Continue home glyburide 5 mg PO qam * Consider addition of metformin XR 500 mg PO daily with evening meal, as it is first-line treatment for type 2 DM and HbA1c is elevated at 8.2% * As long as there is no contraindication/patient intolerance to this therapy
[2019-04-27] MEDS: ATORVASTATIN 40 MG TAB PO SCH (19:37)
[2019-04-27] MEDS: SENNA 8.6 MG TAB PO SCH (19:40)
[2019-04-28] MEDS: OXYCODONE HCL IR 5 MG TAB (IMMEDIATE RELEASE) PO PRN ×2 (02:22→11:54)
[2019-04-28] MEDS: ACETAMINOPHEN 500 MG TAB PO SCH (05:32)
[2019-04-28 06:39] LABS: Mean Corpuscular Hgb Conc 32.5 g/dL (32-36); Mean Platelet Volume 9.5 fL (7.4-10.4); Platelet Count 162 K/uL (130-400)
[2019-04-28 07:12] LABS: Basophils # (auto) 0.02 K/uL (0-0.2); Basophils % (auto) 0.2 %; Eosinophils # (auto) 0.22 K/uL (0-0.5); Eosinophils % (auto) 2.3 %; Hematocrit (blood only) 32.6 % (37-47); Hemoglobin 10.6 g/dL (12.0-16.0); Immature Granulocytes # (auto) 0.03 K/uL (0.00-0.02); Immature Granulocytes % (auto) 0.3 %; Lymphocytes # (auto) 1.76 K/uL (1.2-3.4); Lymphocytes % (auto) 18.4 %; Mean Corpuscular Hemoglobin 26.5 pg (25-34); Mean Corpuscular Volume 81.5 fL (80-100); Monocytes # (auto) 0.73 K/uL (0.11-0.59); Monocytes % (auto) 7.6 %; Neutrophils # (auto) 6.82 K/uL (1.4-6.5); Neutrophils % (auto) 71.2 %; RDW Coefficient of Variation 14.8 % (11.5-14.5); RDW Standard Deviation 44.2 fL (36.4-46.3); White Blood Count 9.58 K/uL (4.8-10.8)
[2019-04-28 07:14] LABS: BUN Creatinine Ratio 13.1 (10-20); Calcium 8.8 mg/dl (8.5-10.1); Creatinine Clr Calc Pharmacy 56.2 ml/min; Est GFR (African American) 65.9; Est GFR (Non-African American) 56.9; Potassium 4.5 mmol/L (3.5-5.1)
--- NOTE | 2019-04-28 08:12 | Orthopedic Progress Note ---
Date of Service April 28, 2019 Assessment & Plan (1) Rotator cuff arthropathy of right shoulder: POD 2 s/p Right Reverse TSA Limited PT/OT today. DVT proph - ASA,SCD Pain management - IV Hydromorphone, Oxycodone DC planning - Home/self care with help of family today if stable. Will give 1 time bolus of fluids for BP/ Dizziness. Subjective POD 2 s/p Right Reversed TSA Pain controlled better. Got dressed this AM and felt a bit dizzy, felt she may have done too much. Denies SOB, CP, N/V. Physical Exam Physical Exam: Right shoulder incision c/d/i, maria ines in tact, skin edges approximated well. No drainage, no erythema. Fingers mobile. Sling in tact. A&Ox3. VSS, BP trending low but not critical. Results & Data Vital Signs (Past 12 Hours) Vital Signs Temp Pulse Resp BP Pulse Ox 04/28/19 07:21 36.6 C 77 18 110/68 95 04/27/19 23:34 36.7 C 78 16 127/76 100
[2019-04-28] MEDS ORDERED: SODIUM CHLORIDE 0.9% 1000ML 250 ML IV ONE (08:16)
[2019-04-28] MEDS: DOCUSATE SODIUM 100 MG CAP PO SCH (08:37)
[2019-04-28] MEDS: MULTIVITAMIN TAB PO SCH (08:37)
[2019-04-28] MEDS: PANTOprazole 40 MG TAB PO SCH (08:37)
[2019-04-28] MEDS: ASPIRIN 81 MG ECTAB PO SCH (08:38)
[2019-04-28] MEDS: MUPIROCIN 2% OINT 22 GM TUBE TOP SCH (08:39)
[2019-04-28] MEDS: INSULIN ASPART 100 UNITS/ML 3 ML PEN SC SCH ×2 (08:45→12:40)
--- NOTE | 2019-04-28 10:40 | Pharmacy Report ---
Pharmacy Glycemic Short Note 2 - Date of Service April 28, 2019 - Glycemic Short BSG Results (Last 24 hours): 04/27/19 04/27/19 04/27/19 12:07 12:24 12:41 Glucose POC Glucose 66 L* 67 L* 87 04/27/19 04/27/19 04/28/19 17:08 21:28 06:09 Glucose 131 H POC Glucose 106 H 131 H 04/28/19 08:08 Glucose POC Glucose 135 H OUTPATIENT ANTIDIABETIC REGIMEN: * Glyburide 5 mg PO qam * HbA1c: 8.2% (03/26/19) ASSESSMENT: * Patient POD#2 s/p shoulder surgery (2 days out from preop IV/PO dexamethasone) * Hyperglyemic effects of steroids will have worn off by now * Patient received 14 units of insulin yesterday * 0 units of basal insulin * 14 units of prandial/correctional insulin * BSGs ranging 66 -135 over the past 24hrs PLAN FOR INPATIENT GLYCEMIC CONTROL: * Hold outpatient oral diabetes medications * Will hold off on basal insulin in this particular patient based on minimal insulin requirement yesterday and episode of hypoglycemia at lunch-time yesterday. Will follow BSGs and adjust if necessary. * Bolus insulin - continue with current parameters (weight-based/stress of 2) * NovoLog per scale ACHS or Q6hrs while NPO * Goal Range: Low 110 mg/dL - High 140 mg/dL * Correction Factor: 25 mg/dL/unit * Nutritional / Prandial insulin per carb ratio of 1 unit per 9 grams CHO consumed PLAN FOR DISCHARGE: * Continue home glyburide 5 mg PO qam * Consider addition of metformin XR 500 mg PO daily with evening meal, as it is first-line treatment for type 2 DM and HbA1c is elevated at 8.2% * As long as there is no contraindication/patient intolerance to this therapy * May titrate up in 500 mg increments every 7 days to a maximum dose of 1 g PO BID
--- NOTE | 2019-05-11 10:21 | Discharge Summary ---
HISTORY OF PRESENT ILLNESS: This is a 68-year-old female patient of Dr. Leggett'otis complaining of chronic right shoulder pain and weakness progressively getting worse. The patient failed conservative treatment including intra-articular injections, anti-inflammatories, and a failed rotator cuff repair in the past. The patient has been diagnosed with chronic rotator cuff arthropathy and wished to proceed with a right reversed total shoulder arthroplasty. PAST MEDICAL HISTORY: Hypercholesterolemia, asthma, diabetes mellitus, osteoarthritis, acid reflux, obesity, and a history of MRSA. POSTOPERATIVE COURSE: The patient underwent a right reversed total shoulder arthroplasty and biceps tenodesis on 04/26/2019. She was followed closely with physical therapy, pain control. On postoperative day 2, she did have some low blood pressures running systolically in the low 100s, high 90s. She did have one spell of dizziness while I was interviewing her in her room. I did give her a bolus of fluid. As the day progressed, her blood pressures normalized into the 130s systolic and she had no more episodes of dizziness. The patient was discharged home on postoperative day #2. PHYSICAL EXAMINATION: On discharge, right shoulder incision was clean, dry, and intact. Filion were intact. Skin edges were approximated well. There was no redness or drainage. Elbow, fingers, and wrist were mobile. Sling was intact. Neurologically and neurovascularly she is intact in her right upper extremity. DIAGNOSES: Status post right reversed total shoulder arthroplasty and biceps tenodesis with a history of hypercholesterolemia, asthma, diabetes mellitus, osteoarthritis, acid reflux, obesity, and a history of MRSA. PLAN: The patient was discharged home with a home exercise program only. She will continue her preadmission medications with the addition of pain medications. The patient will follow up as scheduled as an outpatient.
== END 2019-04-28 12:51 | disposition home or self-care (01) | DRG 483 ==
LOC: ASU 08:20 → 3E 13:46